=== PATIENT | female | born 1965 | race Two or more races ===

== ENCOUNTER 2021-06-06 05:31 | Inpatient (IN) | payer OTHER ==
[~2021-06-06] VITALS: Ht 157.5 cm; Wt 125.2 kg
[~2021-06-06 05:31] MED LIST: DIPH25; Keflex500 MG PO; Mobic15 MG PO; PRED20 PO; Permethrin60 GM TOP
[2021-06-06 06:34] LABS: BASOPHILS ABSOLUTE AUTO 0.04 K/mm3 (0.00-0.23); BASOPHILS PERCENT AUTO 0 % (0-2); EOSINOPHILS ABSOLUTE AUTO 0.01 K/mm3 (0.00-0.68); EOSINOPHILS PERCENT AUTO 0 % (0-6); Hemoglobin 14.8 g/dL (11.5-16.0); IMMATURE GRAN ABSOLUTE AUTO 0.04 K/mm3 (0.00-0.10); IMMATURE GRAN PERCENT AUTO 0 % (0-1); LYMPHOCYTES ABSOLUTE AUTO 1.57 K/mm3 (0.84-5.20); LYMPHOCYTES PERCENT AUTO 11 % (21-46); MONOCYTES ABSOLUTE AUTO 0.72 K/mm3 (0.16-1.47); MONOCYTES PERCENT AUTO 5 % (4-13); Mean Corpuscular HGB 28.7 pg (26.0-34.0); Mean Corpuscular HGB Conc 33.6 g/dL (31.5-36.5); Mean Corpuscular Volume 85 fL (80-100); Mean Platelet Volume 10.7 fL (9.1-12.4); NEUTROPHILS ABSOLUTE AUTO 12.16 K/mm3 (1.96-9.15); NEUTROPHILS PERCENT AUTO 84 % (41-73); Platelet Count 265 K/mm3 (150-400); RDW Coefficient Variation 13.2 % (11.7-14.2); Red Blood Cell Count 5.16 M/mm3 (3.80-5.20); White Blood Cell Count 14.54 K/mm3 (4.00-11.30)
[2021-06-06 06:51] LABS: Alanine Aminotransfer (ALT/SGP 29 U/L (12-78); Albumin, Blood 4.2 g/dL (3.4-5.0); Albumin/Globulin Ratio 0.8 (0.8-1.8); Alk Phos 64 U/L (50-136); Anion Gap 6 mmol/L (6-16); Aspartate Aminotrans (AST/SGOT 23 U/L (12-37); Bilirubin, Total 0.7 mg/dL (0.1-1.0); Blood Urea Nitrogen 9 mg/dL (8-24); Bun/Creatinine Ratio 14.3 (12.0-20.0); CO2, Blood 24 mmol/L (21-32); Calcium, Blood 9.2 mg/dL (8.5-10.1); Chloride, Blood 102 mmol/L (98-108); Creatinine, Blood 0.63 mg/dL (0.40-1.00); Glomerular Filtration Rate >60 (60-); Glucose, Blood 140 mg/dL (70-99); Potassium, Blood 4.1 mmol/L (3.5-5.5); Sodium, Blood 132 mmol/L (136-145); Total Protein, Blood 9.2 g/dL (6.4-8.2); Troponin I 0.351 ng/mL (0.000-0.040)
[2021-06-06 09:29] LABS: International Normalized Ratio 1.07; Prothrombin Time Results 11.5 Sec (9.7-11.5)
--- NOTE | 2021-06-06 17:56 | NUR ---
SHIFT SUMMARY; ARRIVES VIA GURNEY FROM ED. TRANSFERS FROM GURNEY TO BED WITH SBA. HEPARIN INFUSING ON ARRIVAL. A/A/OX4, DENIES SOB, VSS. ABD US COMPLETE DURING SHIFT, DENIES CP OR SOB. HEPARIN INFUSING AT 15UNIT/KG AT SHIFT CHANGE. WILL CONTINUE TO MONITOR AND TREAT UNTIL CHANGE OF SHIFT.
--- NOTE | 2021-06-06 21:07 | NUR ---
ASSUMED CARE OF PATIENT AT APPROXIMATELY 1910 FROM LETITIA Marie RN. PATIENT ALERT AND ORIENTED X4; SBA OUT OF BED DUE TO LINES. PATIENT DENIES CP/PRESSURE; PAIN ELSEWHERE, DIZZINESS OR NAUSEA. PATIENT EATING LIQUID DIET SLOW AND REPORTS A SMALL AMOUNT OF INDIGESTION AFTER. NSR ON TELE; HEPARIN GTT; OXYGEN SATURATION ABOVE 90% ON ROOM AIR.
[2021-06-07 02:05] LABS: BASOPHILS ABSOLUTE AUTO 0.06 K/mm3 (0.00-0.23); BASOPHILS PERCENT AUTO 0 % (0-2); EOSINOPHILS ABSOLUTE AUTO 0.01 K/mm3 (0.00-0.68); EOSINOPHILS PERCENT AUTO 0 % (0-6); Hematocrit 40.1 % (33.0-51.0); Hemoglobin 13.4 g/dL (11.5-16.0); IMMATURE GRAN ABSOLUTE AUTO 0.07 K/mm3 (0.00-0.10); IMMATURE GRAN PERCENT AUTO 0 % (0-1); LYMPHOCYTES PERCENT AUTO 7 % (21-46); MONOCYTES ABSOLUTE AUTO 1.33 K/mm3 (0.16-1.47); MONOCYTES PERCENT AUTO 7 % (4-13); Mean Corpuscular HGB 28.2 pg (26.0-34.0); Mean Corpuscular HGB Conc 33.4 g/dL (31.5-36.5); Mean Corpuscular Volume 84 fL (80-100); Mean Platelet Volume 10.2 fL (9.1-12.4); NEUTROPHILS ABSOLUTE AUTO 15.99 K/mm3 (1.96-9.15); NEUTROPHILS PERCENT AUTO 85 % (41-73); Platelet Count 234 K/mm3 (150-400); RDW Coefficient Variation 13.7 % (11.7-14.2); RDW Standard Deviation 42.5 fL (35.1-46.3); Red Blood Cell Count 4.76 M/mm3 (3.80-5.20); White Blood Cell Count 18.76 K/mm3 (4.00-11.30)
[2021-06-07 02:25] LABS: Anion Gap 6 mmol/L (6-16); Blood Urea Nitrogen 13 mg/dL (8-24); Bun/Creatinine Ratio 13.7 (12.0-20.0); CO2, Blood 25 mmol/L (21-32); Calcium, Blood 8.4 mg/dL (8.5-10.1); Chloride, Blood 103 mmol/L (98-108); Creatinine, Blood 0.95 mg/dL (0.40-1.00); Glomerular Filtration Rate >60 (60-); Glucose, Blood 131 mg/dL (70-99); Potassium, Blood 3.4 mmol/L (3.5-5.5); Sodium, Blood 134 mmol/L (136-145); Troponin I 0.255 ng/mL (0.000-0.040)
--- NOTE | 2021-06-07 06:44 | NUR ---
PATIENT SLEPT ABOUT SIX HOURS LAST NIGHT. VSS. HEPARIN ADJUSTED TWICE. NO ACUTE CHANGES
--- NOTE | 2021-06-07 18:27 | NUR ---
SHIFT SUMMARY; ASSUMED CARE AT 0700, REPORT FROM SHAYNA PENA. A/A/OX4 DURING SHIFT. SBA IN ROOM, REPOSITIONS SELF IN BED NEEDED. 1ST PORTION OF STRESS TEST COMPLETE TODAY. HEPARIN INFUSING AT 19UNIT/KG PER ORDERS. STATUS CHANGED TO MEDICAL TODAY, WILL CONTINUE TO TREAT AND MONITOR UNTIL CHANGE OF SHIFT.
--- NOTE | 2021-06-07 21:57 | NUR ---
ASSUMED CARE OF PATIENT AT APPROXIMATELY 1910 FROM LETITIA Marie RN. PATIENT ALERT AND ORIENTED X4; SBA OUT OF BED DUE TO LINES. PATIENT DENIES CP/PRESSURE, DIZZINESS OR NAUSEA. PATIENT REPORTS PAIN IN ABDOMEN; MEDICATED PER EMAR AND GIVEN K-PAD. PATIENT EATING LIQUID DIET SLOW AND REPORTS A SMALL AMOUNT OF INDIGESTION AFTER. NSR ON TELE; HEPARIN GTT; OXYGEN SATURATION ABOVE 90% ON ROOM AIR. MEDICAL TELE STATUS.
[2021-06-08 02:05] LABS: BASOPHILS ABSOLUTE AUTO 0.04 K/mm3 (0.00-0.23); BASOPHILS PERCENT AUTO 0 % (0-2); EOSINOPHILS ABSOLUTE AUTO 0.02 K/mm3 (0.00-0.68); EOSINOPHILS PERCENT AUTO 0 % (0-6); Hematocrit 41.1 % (33.0-51.0); Hemoglobin 13.4 g/dL (11.5-16.0); IMMATURE GRAN ABSOLUTE AUTO 0.08 K/mm3 (0.00-0.10); IMMATURE GRAN PERCENT AUTO 1 % (0-1); LYMPHOCYTES ABSOLUTE AUTO 1.13 K/mm3 (0.84-5.20); LYMPHOCYTES PERCENT AUTO 9 % (21-46); MONOCYTES ABSOLUTE AUTO 0.55 K/mm3 (0.16-1.47); MONOCYTES PERCENT AUTO 4 % (4-13); Mean Corpuscular HGB 28.3 pg (26.0-34.0); Mean Corpuscular HGB Conc 32.6 g/dL (31.5-36.5); Mean Corpuscular Volume 87 fL (80-100); Mean Platelet Volume 10.5 fL (9.1-12.4); NEUTROPHILS PERCENT AUTO 86 % (41-73); Platelet Count 251 K/mm3 (150-400); RDW Coefficient Variation 13.6 % (11.7-14.2); Red Blood Cell Count 4.74 M/mm3 (3.80-5.20); White Blood Cell Count 12.92 K/mm3 (4.00-11.30)
[2021-06-08 02:06] LABS: Alanine Aminotransfer (ALT/SGP 21 U/L (12-78); Albumin, Blood 3.2 g/dL (3.4-5.0); Albumin/Globulin Ratio 0.6 (0.8-1.8); Alk Phos 61 U/L (50-136); Anion Gap 4 mmol/L (6-16); Aspartate Aminotrans (AST/SGOT 11 U/L (12-37); Blood Urea Nitrogen 10 mg/dL (8-24); Bun/Creatinine Ratio 11.9 (12.0-20.0); CO2, Blood 28 mmol/L (21-32); Calcium, Blood 8.9 mg/dL (8.5-10.1); Chloride, Blood 103 mmol/L (98-108); Creatinine, Blood 0.84 mg/dL (0.40-1.00); Glomerular Filtration Rate >60 (60-); Glucose, Blood 136 mg/dL (70-99); Potassium, Blood 3.6 mmol/L (3.5-5.5); Sodium, Blood 135 mmol/L (136-145); Total Protein, Blood 8.2 g/dL (6.4-8.2)
--- NOTE | 2021-06-08 06:46 | NUR ---
PATIENT SLEPT ABOUT SIX HOURS LAST NIGHT OFF AND ON; REPORTED PAIN; GIVEN TYLENOL AND HEATING PAD WITH GOOD RESULTS UNTIL ABOUT 0615 REQUESTED MORPHINE. VSS. HEPARIN ADJUSTED ONCE.
--- NOTE | 2021-06-08 08:15 | NUR ---
INITIAL ASSESSMENT: Patient is sitting up in the edge of the bed, alert and oriented. Patient reports 6/10 pain in her lower abdomen. HRR. LS CTA, biox WNL on RA. BT +, pt states she had an episode of diarrhea yesterday. pt is NPO except water for stress test this AM. Dr. Robledo called this AM, he would like to have cardiology sign off on the patient if there is an operative plan in place in the future, will pass this along to Dr. Veloz. VSS. Patient denies needs at this time, call light in reach. Will continue to monitor.
--- NOTE | 2021-06-08 11:00 | NUR ---
Patient has had a couple of episodes of diarrhea this morning, she is up in the bathroom c/o nausea and epigastric pain. Patient is medicated with nausea medications and taken down for images. Upon return patient states her pain and nausea is better. VSS. Patient denies other needs at this time. Call light in reach, will continue to monitor.
--- NOTE | 2021-06-08 17:44 | NUR ---
I TALKED WITH DR. GUAMAN, WE ARE JUST WAITING ON DR. MI FROM SURGERY TO COME AND CONSULT ON THE PATIENT TO FIND OUT PLAN OF CARE. PT PREFERS A CONSERVATIVE APPROACH AND WOULD LIKE FOR SURGERY TO NOT BE HER FIRST OPTION IF POSSIBLE. PT DENIES OTHER NEEDS AT THIS TIME. CALL LIGHT IN REACH, WILL CONTINUE TO MONITOR.
--- NOTE | 2021-06-08 19:26 | NUR ---
PATIENT HAS DONE WELL THROUGH OUT THE SHIFT. ONE BOUT OF CHEST/ABDOMINAL PAIN AND NAUSEA, RESOLVED WITH ZOFRAN. STRESS TEST NEGATIVE. PT HAS BEEN CLEARED BY DR. MI WITH SOME RECOMMENDED DIET MODIFICATIONS. POSSIBLE DISCHARGE TOMORROW.
--- NOTE | 2021-06-08 22:26 | NUR ---
PATIENT IS ALERT AND ORIENTED X4. INDEPENDENT WITH REPOSITIONING. 02 SATS 98% ON RA. DENIES CP/PRESSURE. STATES HER ABDOMIN IS ONLY SLIGHTLY TENDER WITH A LOT OF ACTIVITY. PATIENT ALSO STATES SHE HAS BEEN HAVING DIARRHEA. SINUS RHYTHM IN THE 70s. CLEAR LIQUID DIET AND PATIENT TEACHING ABOUT HEALTHY NON-FAT FOOD ITEMS. VSS, NO ACUTE CHANGES. CALL LIGHT IN REACH.
--- NOTE | 2021-06-08 23:12 | NUR ---
REPORT GIVEN TO BALDEMAR CORRAL. PATIENT TRANSFERRED TO ROOM 229 VIA WHEELCHAIR.
--- NOTE | 2021-06-09 01:45 | NUR ---
PT TRANSFERRED TO SURGICAL FROM PCU, STABLE UPON ARRIVAL, NO COMPLAINTS AT THIS TIME, MOVED FROM WC TO BED INDEPENDENTLY. WILL CTM
--- NOTE | 2021-06-09 05:52 | NUR ---
SHIFT SUMMARY PT CONTINUES TO BE STABLE IN ROOM, DENIES ANY NEEDS OTHER THAN WANTING DIET ADVANCED, KEPT NPO DUE TO BEING ON SURGERY SCHEDULE BUT WILL DISCUSS c DAY RN PATIENT IS ALSO SET TO DC LATER TODAY, DENIES PAIN, TELE IN PLACE. NO ACUTE EVENTS THIS SHIFT, CALL LIGHT IN REACH, WILL CTM AND REPORT TO ONCOMING DAY RN.
[2021-06-09] MEDS ORDERED: ASPI81CH PO (10:10)
[2021-06-09] MEDS ORDERED: CARV6.25 PO (10:11)
[2021-06-09] MEDS ORDERED: PANT20 PO (10:12)
[2021-06-09] MEDS ORDERED: ATOR10 PO (10:12)
--- NOTE | 2021-06-09 11:55 | NUR ---
DISCHARGE TOLERATING DIET WELL; DENIED ABD PAIN OR N/V POST MEAL. UP IND IN ROOM. APPOINTMENTS MADE W/ PCP & CARDIOLOGY. PT STATES AFTER CARDIOLOGY APPOINTMENT WILL MAKE APPT W/ GEN SURGERY DIRECTED BY MD. IMPORTANCE OF THESE APPTS DISCUSSED. ESCORTED OUT VIA W/C W/ SPOUSE AT SIDE. MEDS FAXED TO [facility]
== END 2021-06-09 11:52 | disposition home or self-care (01) | DRG 281 ==
LOC: ER 05:31 → PCU 05:32 → ERHOLD 05:32 → PCU 12:21 → SURS 06-08 14:33 → PCU 06-08 14:34 → SURS 06-08 23:16
PROVIDERS: Emergency Medicine; Pharmacist; ADMIT Internal Medicine
DX: I21.4 Non-ST elevation (NSTEMI) myocardial infarction (principal); Z68.43 Body mass index [BMI] 50.0-59.9, adult; K80.00 Calculus of gallbladder with acute cholecystitis without obstruction; E87.1 Hypo-osmolality and hyponatremia; R73.9 Hyperglycemia, unspecified; I10 Essential (primary) hypertension; E87.6 Hypokalemia; E66.01 Morbid (severe) obesity due to excess calories; Z88.0 Allergy status to penicillin; Z88.5 Allergy status to narcotic agent; Z98.890 Other specified postprocedural states; Z98.891 History of uterine scar from previous surgery
CPT/HCPCS: 36415; 71046; 74177; 76705; 78452; 80048; 80053; 83036; 83690; 84484; 85025; 85610; 85730; 93005; 93010; 93017; 96365; 96365-59; 96366; 96375; 96376; 99285-25; A9270; A9500; C9113; G0378; J0706; J1644; J1956; J2270; J2405; J2785; J3480; J7030; J7040; Q9967

== ENCOUNTER 2022-02-25 13:49 | Emergency (ER) | payer OTHER ==
[~2022-02-25] VITALS: Ht 157.5 cm; Wt 113.4 kg
[~2022-02-25 13:49] MED LIST changes: +ASPI81CH PO; +ATOR10 PO; +CARV6.25 PO; +PANT20 PO
[2022-02-25 14:53] LABS: BASOPHILS ABSOLUTE AUTO 0.04 K/mm3 (0.00-0.23); BASOPHILS PERCENT AUTO 0 % (0-2); EOSINOPHILS ABSOLUTE AUTO 0.01 K/mm3 (0.00-0.68); EOSINOPHILS PERCENT AUTO 0 % (0-6); Hemoglobin 14.7 g/dL (11.5-16.0); IMMATURE GRAN ABSOLUTE AUTO 0.04 K/mm3 (0.00-0.10); IMMATURE GRAN PERCENT AUTO 0 % (0-1); LYMPHOCYTES ABSOLUTE AUTO 1.15 K/mm3 (0.84-5.20); LYMPHOCYTES PERCENT AUTO 11 % (21-46); MONOCYTES ABSOLUTE AUTO 0.35 K/mm3 (0.16-1.47); MONOCYTES PERCENT AUTO 3 % (4-13); Mean Corpuscular HGB 28.4 pg (26.0-34.0); Mean Corpuscular HGB Conc 32.7 g/dL (31.5-36.5); Mean Corpuscular Volume 87 fL (80-100); Mean Platelet Volume 11.1 fL (9.1-12.4); NEUTROPHILS ABSOLUTE AUTO 8.72 K/mm3 (1.96-9.15); NEUTROPHILS PERCENT AUTO 85 % (41-73); Platelet Count 242 K/mm3 (150-400); RDW Coefficient Variation 13.3 % (11.7-14.2); RDW Standard Deviation 42.5 fL (35.1-46.3); Red Blood Cell Count 5.18 M/mm3 (3.80-5.20); White Blood Cell Count 10.31 K/mm3 (4.00-11.30)
[2022-02-25 15:26] LABS: Alanine Aminotransfer (ALT/SGP 26 U/L (12-78); Albumin, Blood 4.2 g/dL (3.4-5.0); Albumin/Globulin Ratio 0.9 (0.8-1.8); Alk Phos 67 U/L (50-136); Anion Gap 9 mmol/L (6-16); Aspartate Aminotrans (AST/SGOT 28 U/L (12-37); Bilirubin, Total 0.6 mg/dL (0.1-1.0); Blood Urea Nitrogen 18 mg/dL (8-24); Bun/Creatinine Ratio 25.9 (12.0-20.0); CO2, Blood 22 mmol/L (21-32); Calcium, Blood 9.5 mg/dL (8.5-10.1); Chloride, Blood 104 mmol/L (98-108); Creatinine, Blood 0.69 mg/dL (0.40-1.00); Globulin, Blood 4.7 g/dL (2.2-4.0); Glomerular Filtration Rate >60 (60-); Glucose, Blood 128 mg/dL (70-99); Potassium, Blood 4.7 mmol/L (3.5-5.5); Sodium, Blood 135 mmol/L (136-145); Total Protein, Blood 8.9 g/dL (6.4-8.2)
[2022-02-25] MEDS ORDERED: Pepcid40 MG PO (19:03)
[2022-02-25] MEDS ORDERED: ONDA4ODT SL (19:03)
[2022-02-25] MEDS ORDERED: HYDR1TAB94 PO (19:03)
== END 2022-02-25 20:10 | disposition home or self-care (01) ==
LOC: ER 13:49
PROVIDERS: Physician Assistant
DX: R10.84 Generalized abdominal pain (principal); R11.2 Nausea with vomiting, unspecified; Z88.0 Allergy status to penicillin; Z88.5 Allergy status to narcotic agent; Z79.899 Other long term (current) drug therapy; Z79.82 Long term (current) use of aspirin
CPT/HCPCS: 36415; 71045; 74177; 80053; 83690; 84484; 85025; 93005; 93010; 96374; 96375; 96376; 99284-25; A9270; J1170; J2270; J2405; Q9967